=== PATIENT | female | born 1975 | race Caucasian/White ===

== ENCOUNTER 2016-11-07 19:14 | Emergency (ER) | payer SELFPAY ==
[~2016-11-07 19:14] MED LIST: LOR PO; MEDROXYPROGESTE10 MG PO; ONDANSETRON4 M3 PO; PRI20 PO
[2016-11-07 21:17] LABS: BASOPHIL % 0.5 % (0-2); PLATELET COUNT 321 x10^3mcL (130-400); RED CELL DISTRIBUTION WIDTH 13.2 % (11.5-14.5)
[2016-11-07 21:24] LABS: CALCIUM 9.2 mg/dL (8.5-10.1); CARBON DIOXIDE 28.2 mmol/L (21-32); CHLORIDE SERUM 102 mmol/L (98-107); CREATININE SERUM 0.8 mg/dL (0.6-1.0); GFR1 > 60 mL/min; GLUCOSE SERUM 88 mg/dL (74-106); POTASSIUM SERUM 3.8 mmol/L (3.5-5.1); SODIUM SERUM 140 mmol/L (136-145)
[2016-11-07 21:29] LABS: ALBUMIN 3.9 g/dL (3.4-5.0); ALKALINE PHOSPHATASE 164 U/L (46-116); ALT/SGPT 25 U/L (14-59); AST/SGOT 14 U/L (15-37); BILIRUBIN TOTAL 0.8 mg/dL (0.20-1.00); LIPASE 142 IU/L (73-393); TOTAL PROTEIN, SERUM 7.7 g/dL (6.4-8.2)
[2016-11-07 21:50] LABS: microscopic required? YES; urine erythrocyte 2+ (NEGATIVE)
[2016-11-08 00:25] VITALS: BP 128/76
== END 2016-11-08 00:25 | disposition home or self-care (01) ==
LOC: ED 19:14
PROVIDERS: Emergency Medicine
DX: N39.0 Urinary tract infection, site not specified (principal)
CPT/HCPCS: J1885; J2270; J2405; J7030

== ENCOUNTER 2016-11-10 19:40 | Emergency (ER) | payer SELFPAY ==
[2016-11-10 20:50] LABS: CALCIUM 8.9 mg/dL (8.5-10.1); CHLORIDE SERUM 101 mmol/L (98-107); CREATININE SERUM 0.9 mg/dL (0.6-1.0); GFR1 > 60 mL/min; GLUCOSE SERUM 87 mg/dL (74-106); POTASSIUM SERUM 3.5 mmol/L (3.5-5.1); SODIUM SERUM 140 mmol/L (136-145)
[2016-11-10 20:55] LABS: ALBUMIN 3.6 g/dL (3.4-5.0); ALKALINE PHOSPHATASE 148 U/L (46-116); ALT/SGPT 24 U/L (14-59); AMYLASE 63 U/L (25-115); AST/SGOT 14 U/L (15-37); BILIRUBIN TOTAL 0.8 mg/dL (0.20-1.00); LIPASE 100 IU/L (73-393); TOTAL PROTEIN, SERUM 7.4 g/dL (6.4-8.2)
[2016-11-10 20:56] LABS: BASOPHIL % 0.5 % (0-2); PLATELET COUNT 321 x10^3mcL (130-400); RED CELL DISTRIBUTION WIDTH 13.1 % (11.5-14.5)
[2016-11-10 21:21] LABS: microscopic required? YES; urine erythrocyte 2+ (NEGATIVE)
[2016-11-10 22:09] VITALS: BP 120/82
== END 2016-11-10 22:10 | disposition home or self-care (01) ==
LOC: ED 19:40
PROVIDERS: Emergency Medicine
DX: R11.10 Vomiting, unspecified (principal); R10.9 Unspecified abdominal pain; Z79.899 Other long term (current) drug therapy; Z90.710 Acquired absence of both cervix and uterus
CPT/HCPCS: J2765

== ENCOUNTER 2017-06-20 10:06 | Emergency (ER) | payer MEDICAID ==
[~2017-06-20] VITALS: Ht 165.1 cm; Wt 81.6 kg
[2017-06-20 13:15] LABS: BASOPHIL % 0.4 % (0-2); PLATELET COUNT 306 x10^3mcL (130-400); RED CELL DISTRIBUTION WIDTH 13.3 % (11.5-14.5)
[2017-06-20 13:20] LABS: microscopic required? YES; urine erythrocyte 1+ (NEGATIVE)
[2017-06-20 13:23] LABS: CALCIUM 9.2 mg/dL (8.5-10.1); CARBON DIOXIDE 25.3 mmol/L (21-32); CHLORIDE SERUM 103 mmol/L (98-107); GFR1 > 60 mL/min; GLUCOSE SERUM 81 mg/dL (74-106); POTASSIUM SERUM 4.3 mmol/L (3.5-5.1); SODIUM SERUM 137 mmol/L (136-145)
[2017-06-20 13:31] LABS: ALBUMIN 3.6 g/dL (3.4-5.0); ALKALINE PHOSPHATASE 139 U/L (46-116); ALT/SGPT 39 U/L (14-59); AST/SGOT 21 U/L (15-37); BILIRUBIN TOTAL 0.73 mg/dL (0.20-1.00); LIPASE 155 IU/L (73-393); TOTAL PROTEIN, SERUM 8.2 g/dL (6.4-8.2)
[2017-06-20 16:58] VITALS: BP 127/68
== END 2017-06-20 16:30 | disposition home or self-care (01) ==
LOC: ED 10:06
PROVIDERS: Emergency Medicine
DX: R10.13 Epigastric pain (principal); R11.2 Nausea with vomiting, unspecified
CPT/HCPCS: J1170; J1200; J7030; Q0162

== ENCOUNTER 2017-06-24 13:02 | Emergency (ER) | payer MEDICAID ==
[2017-06-24 16:42] LABS: microscopic required? YES; urine erythrocyte TRACE (NEGATIVE)
[2017-06-24 16:50] LABS: BASOPHIL % 0.4 % (0-2); PLATELET COUNT 313 x10^3mcL (130-400); RED CELL DISTRIBUTION WIDTH 13.5 % (11.5-14.5)
[2017-06-24 16:59] LABS: CALCIUM 8.9 mg/dL (8.5-10.1); CARBON DIOXIDE 30.1 mmol/L (21-32); CHLORIDE SERUM 103 mmol/L (98-107); CREATININE SERUM 0.8 mg/dL (0.6-1.0); GFR1 > 60 mL/min; GLUCOSE SERUM 82 mg/dL (74-106); POTASSIUM SERUM 4.6 mmol/L (3.5-5.1); SODIUM SERUM 138 mmol/L (136-145)
[2017-06-24 17:03] LABS: ALBUMIN 3.5 g/dL (3.4-5.0); ALKALINE PHOSPHATASE 125 U/L (46-116); ALT/SGPT 37 U/L (14-59); AMYLASE 73 U/L (25-115); AST/SGOT 14 U/L (15-37); BILIRUBIN TOTAL 0.84 mg/dL (0.20-1.00); LIPASE 300 IU/L (73-393); TOTAL PROTEIN, SERUM 7.8 g/dL (6.4-8.2)
[2017-06-24 17:41] VITALS: BP 120/79
== END 2017-06-24 17:41 | disposition home or self-care (01) ==
LOC: ED 13:02
PROVIDERS: Emergency Medicine
DX: R10.31 Right lower quadrant pain (principal); R10.32 Left lower quadrant pain; R11.0 Nausea; Z90.710 Acquired absence of both cervix and uterus
CPT/HCPCS: 36415; 83880

== ENCOUNTER 2017-07-18 09:07 | Inpatient (IN) | payer MEDICAID ==
[~2017-07-18] VITALS: Ht 165.1 cm; Wt 81.2 kg
--- NOTE | 2017-07-18 09:35 | NUR ---
DR DENNEY AT BEDSIDE
[2017-07-18 09:56] LABS: BASOPHIL % 0.4 % (0-2); PLATELET COUNT 328 x10^3mcL (130-400); RED CELL DISTRIBUTION WIDTH 13.2 % (11.5-14.5)
[2017-07-18 10:05] LABS: CARBON DIOXIDE 27.3 mmol/L (21-32); CHLORIDE SERUM 105 mmol/L (98-107); CREATININE SERUM 0.9 mg/dL (0.6-1.0); GFR1 > 60 mL/min; GLUCOSE SERUM 91 mg/dL (74-106); POTASSIUM SERUM 4.2 mmol/L (3.5-5.1); SODIUM SERUM 141 mmol/L (136-145)
[2017-07-18 10:09] LABS: ALBUMIN 3.6 g/dL (3.4-5.0); ALKALINE PHOSPHATASE 148 U/L (46-116); ALT/SGPT 47 U/L (14-59); AST/SGOT 20 U/L (15-37); BILIRUBIN TOTAL 0.78 mg/dL (0.20-1.00); TOTAL PROTEIN, SERUM 7.9 g/dL (6.4-8.2)
--- NOTE | 2017-07-18 10:22 | NUR ---
PLEASE ENTER FULL NAMES OF STUDENT/RN Documentation completed by (Student Nurse):LIU RUBALCAVA Documentation reviewed by (Registered Nurse): [email or web address]
[2017-07-18 10:34] LABS: microscopic required? YES; urine erythrocyte TRACE (NEGATIVE)
--- NOTE | 2017-07-18 11:25 | NUR ---
REMAINS C/O ABD,PAIN WHICH IS LESS THAN BEFORE NOW02/19.MEDICATED WITH MS.
--- NOTE | 2017-07-18 12:15 | NUR ---
STATES FEELS BETTR, WAITING POSSIBLE ADMISSION,ABDOMEN SOFT TENDER LT LOWER QUAD, ACTIVE BOWEL SOUNDS
[2017-07-18 13:59] LABS: PHOSPHOROUS 3.2 mg/dL (2.5-4.9)
[2017-07-18 14:01] LABS: CHOLESTEROL/HDL RATIO 6.5
[2017-07-18 14:07] LABS: FREE T4 0.99 ng/dL (0.76-1.46); FREE THYROXINE INDEX 2.6 ug/dL (1.4-4.5); T4(THYROXINE) 8.6 ug/dL (4.7-13.3)
--- NOTE | 2017-07-18 14:15 | NUR ---
RECEIVED PT FROM ED [facility]IA [facility], CAME IN DUE TO LLQ ABDOMINAL PAIN AND NAUSEA THAT STARTED LAST NIGHT. AAOX4. NO SOB NOTED. NSR ON THE MONITOR. C/O 9/10 INTERMITTENT SHARP LEFT ABDOMINAL PAIN AND NAUSEA. ABDOMEN IS SOFT. VOIDS FREELY. VSS. IV SITE PATENT AND INTACT. SIDE RAILS UPX2. CALL LIGHT ON REACH. WILL CONT TO MONITOR
[2017-07-18 14:18] VITALS: BP 134/87
[2017-07-18 14:22] VITALS: Ht 165.1 cm; Wt 81.2 kg
--- NOTE | 2017-07-18 14:31 | NUR ---
MEDICATED W/ NORCO 1 TAB PO FOR C/O 9/10 LLQ SHARP ABDOMINAL PAIN AND ZOFRAN 4 MG IVP FOR C/O NAUSEA. WILL CONT TO MONITOR
[2017-07-18 14:34] LABS: T3 TOTAL 1.21 ng/mL
--- NOTE | 2017-07-18 14:38 | NUR ---
ENDORSED TO PRIMARY NURSE KIRA FOR CONTINUITY OF CARE.
--- NOTE | 2017-07-18 14:40 | NUR ---
RECEIVED PATIENT SITTING UP IN BED, ALERT AND ORIENTED. IVF INFUSING WELL. PER PATIENT SHE HAS LEFT LOWER ABD PAIN, BUT THAT SHE WAS JUST MEDICATED FOR PAIN. DENIES ANY N/V/D AT THIS TIME. WILL CONTINUE TO MONITOR.
[2017-07-18 16:27] VITALS: BP 136/80; BP 153/76
--- NOTE | 2017-07-18 18:25 | NUR ---
PATIENT C/O FEELING NAUSEATED. MEDICATED WITH ZOFRAN IV BY VERÓNICA MERCER ORDERED. PATIENT APPEARS TO BE RESTING IN BED. MEDICATED EARLIER WITH TOLRADOL IV FOR C/O ABD PAIN BY ALANA MERCER. WILL CONTINUE TO MONITOR. FAMILY MEMBER AT BEDSIDE.
--- NOTE | 2017-07-18 19:36 | NUR ---
AOX4. TELE #3, NSR. LUNGS CLEAR ON RA. PULSES PALPABLE. NO EDEMA. BOWEL SOUNDS ACTIVE. C/O ABD PAIN 04/22, WILL MEDICATE PER EMAR. SKIN INTACT. NS @ 100 ML/HR TO LEFT AC, NO REDNESS OR SWELLING. FAMILY AT BEDSIDE. BED IN LOW POSITION, CALL LIGHT IN REACH. INSTRUCTED TO CALL FOR ASSISTANCE.
[2017-07-18 22:01] VITALS: BP 124/83
[2017-07-19 05:27] VITALS: BP 111/75
--- NOTE | 2017-07-19 06:20 | NUR ---
RESTING IN BED WITH EYES CLOSED. BREATHING EVEN AND UNLABORED. AWAKENS EASILY TO VERBAL STIMULI. NO ACUTE DISTRESS NOTED. NO ACUTE CHANGES DURING SHIFT. NO COMPLAINTS OF ABD PAIN/NAUSEA. WILL ENDORSE TO ONCOMING RN.
[2017-07-19 06:44] LABS: BASOPHIL % 0.4 % (0-2); PLATELET COUNT 255 x10^3mcL (130-400); RED CELL DISTRIBUTION WIDTH 13.1 % (11.5-14.5)
[2017-07-19 06:59] LABS: CALCIUM 8.1 mg/dL (8.5-10.1); CARBON DIOXIDE 28.6 mmol/L (21-32); CHLORIDE SERUM 108 mmol/L (98-107); CREATININE SERUM 0.7 mg/dL (0.6-1.0); GFR1 > 60 mL/min; GLUCOSE SERUM 87 mg/dL (74-106); MAGNESIUM 1.7 mg/dL (1.8-2.4); PHOSPHOROUS 3.2 mg/dL (2.5-4.9); SODIUM SERUM 143 mmol/L (136-145)
--- NOTE | 2017-07-19 08:15 | NUR ---
PT LAYING IN BED. A/OX4. REPORT OF PAIN 10/10 IN LLQ ABDOMEN. SEE MAR FOR PAIN MED ADMINISTRATION. SHARP, CONTINUOUS, WORSE WITH ACTIVITY. NSR ON TELE MONITOR. NO COMPLAINT OF CHEST PAIN. LUNG SOUNDS CTA BILATERALLY ON ROOM AIR. BOWEL SOUNDS ACTIVE. NO DIFFICULTIES URINATING. ABDOMEN SOFT, FLAT, NON-DISTENDED. AMBULATORY TO RESTROOM. IV FLUIDS FLOWING. BED IN LOW POSITION. CALL LIGHT WITH REACH. WILL CONTINUE TO MONITOR.
[2017-07-19 09:05] VITALS: BP 117/77
--- NOTE | 2017-07-19 12:00 | NUR ---
PT LAYING IN BED. A/OX4. REPORT OF MODERATE PAIN TO LLQ, DECLINED TO PAIN MEDICATION. NO SIGN OF ACUTE DISTRESS. IV FLUIDS FLOWING. CALL LIGHT WITHIN REACH. WILL CONTINUE TO MONITOR.
[2017-07-19 13:25] VITALS: BP 118/75
[2017-07-19 18:03] VITALS: BP 149/80
--- NOTE | 2017-07-19 18:15 | NUR ---
PT LAYING IN BED. REPORT OF MILD PAIN IN LLQ OF ABDOMEN. DECLINED TO PAIN MEDICATION. A/OX4. NO SIGN OF ACUTE DISTRESS. IV FLUIDS FLOWING. CALL LIGHT WITHIN REACH. BED IN LOW POSITION. WILL ENDORSE TO ONCOMING SHIFT.
--- NOTE | 2017-07-19 19:16 | NUR ---
AOX4. TELE #3, NSR. LUNGS CLEAR ON RA. PULSES PALPABLE. NO EDEMA. BOWEL SOUNDS ACTIVE. DENIES ABD PAIN/NAUSEA AT THIS TIME. SKIN INTACT. NS @ 100 ML/HR TO LEFT AC, NO REDNESS OR SWELLING. BED IN LOW POSITION, CALL LIGHT IN REACH. INSTRUCTED TO CALL FOR ASSISTANCE.
--- NOTE | 2017-07-20 01:49 | NUR ---
RESTING WITH EYES CLOSED. AWAKENS EASILY TO VERBAL STIMULI. BREATHING EVEN AND UNLABORED. NO ACUTE DISTRESS NOTED. WILL CONTINUE TO MONITOR.
[2017-07-20 06:34] VITALS: BP 97/63
[2017-07-20 07:14] LABS: BASOPHIL % 0.7 % (0-2); PLATELET COUNT 243 x10^3mcL (130-400); RED CELL DISTRIBUTION WIDTH 13.2 % (11.5-14.5)
--- NOTE | 2017-07-20 07:14 | NUR ---
NO ACUTE CHANGES DURING SHIFT. ENDORSE TO ONCOMING RN.
[2017-07-20 07:28] LABS: CALCIUM 8.4 mg/dL (8.5-10.1); CARBON DIOXIDE 28.8 mmol/L (21-32); CREATININE SERUM 1.2 mg/dL (0.6-1.0); MAGNESIUM 1.8 mg/dL (1.8-2.4); PHOSPHOROUS 3.9 mg/dL (2.5-4.9)
[2017-07-20 09:40] VITALS: BP 121/84
--- NOTE | 2017-07-20 10:55 | NUR ---
AT 0705 - RECEIVED PATIENT FROM NIGHT NURSE. PATIENT AWAKE, ALERT AND ORINETED. MONITOR SHOWING SINUS RHYTHM; RATE 70'S. C/O NAUSEA AND MEDICATED BY [facility] PER EMAR.IV INFUSING NS AT 100ML/HR. AT 0745 - EATING BREAKFAST. REPORTS THAT NAUSEA HAS SUBSIDED. AT 0843 - SEEN BY DR LANDAVERDE DURING MORNING ROUNDS. MEDICAL TEAM DOCTORS, ANN ALONZO AND MYSELF PRIMARY NURSE ALSO PRESENT. DR LANDAVERDE SPOKE WITH PATIENT ABOUT PLAN; PLAN TO DC HOME TODAY AND FOLLOW-UP WITH PLAN. PATIENT VERBALIZED AGREEMENT.
[2017-07-20 12:15] VITALS: BP 120/81
[2017-07-20] MEDS ORDERED: DOXYCYCLINE HY100 MG PO (13:59)
[2017-07-20] MEDS ORDERED: BD LACTINEX1.4 MG PO (13:59)
[2017-07-20 14:23] VITALS: BP 121/84
--- NOTE | 2017-07-20 15:00 | NUR ---
QUIET DAY. NO FURTHER NAUSEA OR C/O PAIN. RECEIVED DISCHARGE ORDERS. IV CATHETER REMOVED INTACT. PATIENT WAS TAKEN OFF CARDIAC MONITORING EARLIER TODAY. PRINTED DISCHARGE INSTRUCTIONS GIVEN AND EXPLAINED TO PATIENT. PRESCRIPTION FOR NORCO PROVIDED. OTHER PRESCRIPTION HAS BEEN RECEIVED BY PATIENT'S PREFERRED PHARMACY. PREPARED FOR DISCHARGE.
--- NOTE | 2017-07-20 15:07 | NUR ---
DISCHARGED HOME WITH FAMILY MEMBER. TAKEN TO DISCHARGE OFFICE IN WHEELCHAIR BY SAF[employer]Y RISK LEAD.
== END 2017-07-20 15:07 | disposition home or self-care (01) | DRG 531 ==
LOC: ED 09:07 → DU 12:50 → MU 07-20 08:04
PROVIDERS: Emergency Medicine; ADMIT Family Medicine
DX: N70.91 Salpingitis, unspecified (principal); K76.0 Fatty (change of) liver, not elsewhere classified; R31.9 Hematuria, unspecified; E78.5 Hyperlipidemia, unspecified; E03.9 Hypothyroidism, unspecified; E66.3 Overweight; Z68.31 Body mass index [BMI] 31.0-31.9, adult
CPT/HCPCS: 83880; 84439; J0694; J1885; J2270; J2405; J2550; J7030; Q0092

== ENCOUNTER 2017-07-29 13:26 | Emergency (ER) | payer MEDICAID ==
[~2017-07-29 13:26] MED LIST changes: +BD LACTINEX1.4 MG PO; +DOXYCYCLINE HY100 MG PO
[2017-07-29 17:09] LABS: BASOPHIL % 0.4 % (0-2); PLATELET COUNT 300 x10^3mcL (130-400); RED CELL DISTRIBUTION WIDTH 13.1 % (11.5-14.5)
[2017-07-29 17:11] LABS: microscopic required? YES; urine erythrocyte NEGATIVE (NEGATIVE)
[2017-07-29 17:13] LABS: CALCIUM 8.8 mg/dL (8.5-10.1); CARBON DIOXIDE 27.6 mmol/L (21-32); CHLORIDE SERUM 105 mmol/L (98-107); CREATININE SERUM 0.7 mg/dL (0.6-1.0); GFR1 > 60 mL/min; GLUCOSE SERUM 75 mg/dL (74-106); POTASSIUM SERUM 3.9 mmol/L (3.5-5.1); SODIUM SERUM 140 mmol/L (136-145)
[2017-07-29 17:17] LABS: ALKALINE PHOSPHATASE 138 U/L (46-116); ALT/SGPT 29 U/L (14-59); AST/SGOT 16 U/L (15-37); BILIRUBIN TOTAL 0.95 mg/dL (0.20-1.00); TOTAL PROTEIN, SERUM 7.1 g/dL (6.4-8.2)
[2017-07-29 17:18] LABS: ALBUMIN 3.2 g/dL (3.4-5.0)
[2017-07-29 19:05] VITALS: BP 130/38
== END 2017-07-29 19:16 | disposition home or self-care (01) ==
LOC: ED 13:26
PROVIDERS: Emergency Medicine
DX: N83.202 Unspecified ovarian cyst, left side (principal); N70.91 Salpingitis, unspecified; Z88.6 Allergy status to analgesic agent
CPT/HCPCS: 83880; 87491; 87591; J1885; J2405; J2765; J7030